=== PATIENT | male | born 1995 | race Caucasian/White ===

== ENCOUNTER 2022-01-03 12:30 | Emergency (ER) | payer SELFPAY ==
[2022-01-03 12:40] VITALS: PULSE 84; RESP 16; TEMP 36.8; O2SAT 100; BMI 28.5
--- NOTE | 2022-01-03 12:41 | XR_ITS ---
FINAL REPORT CLINICAL HISTORY: fall on Monday FINDINGS: LEFT SHOULDER 3 views demonstrate no acute fracture or dislocation. There is deformity of the mid clavicle likely representing a chronic fracture. The joint spaces appear normal. The visualized bony structures are well aligned. No soft tissue abnormality is seen. IMPRESSION: No acute process. Reviewed, Interpreted and Dictated by Juan M Patricia III, MD Transcribed by Leland Ojeda Authenticated by Juan M Patricia III, MD on 01/03/2022 01:41:47 PM [facility]
[2022-01-03 14:00] VITALS: PULSE 84; RESP 16; TEMP 36.8; O2SAT 100; BMI 28.4
--- NOTE | 2022-01-03 14:19 | HMH.EDUTC ---
[facility] [place] Impression: Shoulder pain Qualifiers: Chronicity: unspecified Laterality: left Qualified Code(s): M25.512 - Pain in left shoulder Disposition: Home, Self-Care Condition on Discharge: Good Instructions: DI for Chronic Pain -- Adult, DI for Shoulder Pain, How To Perform RICE (Rest, Ice, Compress, Elevate) Additional Instructions: *RICE, Rest the extremity, Ice 15-20 minutes 3-4 times daily, Compress- wear the maria antonia wrap as discussed as much as possible to help reduce swelling and pain, Elevate the extremity when at rest *Sling is for support and help control swelling, use it except in the shower. Be sure that is not to tight but not to loose either *Elevate when resting * Etodolac every 8 hours as needed for pain an inflammation. If need something more can take Tylenol in between doses Do not take Ibuprofen with this medication Immediately follow up with your family doctor for new or worsening of symptoms, or no noticeable improvement over the next 3-5 days Follow up with Orthopedics if no improvement or pain continues Call office for appointment Dr Garcia Prescriptions: Etodolac 200 mg PO Q8HP PRN #20 capsule PRN Reason: Moderate Pain Referrals: Provider,MD Huber [Primary Care Provider] - As needed Mehrdad Garcia JR, MD [Physician] - As needed Time of Disposition: 14:26 Medical Decision Making - Scooby Inquiry Pt receiving controlled substance: No Scooby was queried for this patient: No Vital Signs: 01/03/22 12:40 01/03/22 14:00 Temperature 98.3 F 98.3 F Temperature Source Oral Oral Pulse Rate [Right] 84 84 Respiratory Rate 16 16 02 Sat by Pulse Oximetry 100 100 Oxygen Delivery Method Room Air Room Air - Radiology Data #1 Image(s): Shoulder Image Reviewed: Yes I have reviewed radiologist's interpretation Preliminary Findings: Normal/NAD IMPRESSION: No acute process. [facility] [place] - General Stated complaint: AO 01/01 lt shoulder pain Time Seen by Provider: 01/03/22 14:19 Mode of Arrival: Ambulatory Source of Information: Patient Limitations: No Limitations Description of Symptoms (Recalled from Triage Doc. by RN): PATIENT REPORTS HITTING LEFT SHOULDER ON GATE MONDAY NIGHT HEENT Symptoms (Recalled from RN notes): No Resp Symptoms (Recalled from RN notes): No Skin Symptoms (Recalled from RN notes): No MS Symptoms (Recalled from RN notes): Yes Functional Status (Recalled from RN notes): WNL - History of Present Illness Provider Complaint: Patient state that he was climbing over a gate on Monday when he lost his balance and fell landing on his left shoulder State that since he fell he has not been able to raise his shoulder or move his arm much since States that today he was still having pain and unable to raise it without grabbing it with his other hand to raise it up - Related Data Previous Rx's Medication Instructions Recorded Etodolac 200 mg PO Q8HP PRN #20 cap 01/03/22 Allergies Allergy/AdvReac Type Severity Reaction Status Date / Time No Known Allergies Allergy Verified 01/03/22 12:41 - Worker's Comp Is this a Worker's Comp case?: No [facility] History - Hepatitis A Screen Drug use history?: No High risk sexual behaviors?: No History of sexually transmitted infection?: No Currently employed?: No Childcare worker?: No Do you have indoor plumbing?: Yes Do you have electricity?: Yes Attestation statement:: This patient has been screened for Hepatitis A risk factors. I have reviewed the patient's past medical history: Yes ROS Obtained: Yes All systems reviewed & no additional complaints, Yes Systems reviewed as appropriate & no additional complaints - Constitutional Constitutional: Reports system reviewed and no additional complaints, except as docu, Denies body ache, Denies chills, Denies fever(s), Denies headache(s) - ENT Ears, Nose, Mouth, and Throat: Reports system reviewed and no additional complaints, except as docu - Cardiovascular
[2022-01-03 14:30] VITALS: BP 0/0; PULSE 84; RESP 16; TEMP 36.8; O2SAT 100
== END 2022-01-03 14:41 | disposition home or self-care (01) ==
LOC: ER 12:39 → UTC 12:39
PROVIDERS: Emergency Provider Nurse Practitioner
DX: M25.512 Pain in left shoulder (principal)
CPT/HCPCS: 29105; 73030; 99213; G0463